=== PATIENT | female | born 1955 | race Asian ===

== ENCOUNTER 2016-11-17 09:16 | Day surgery (SDC) | payer BC ==
[~2016-11-17] VITALS: Ht 157.5 cm; Wt 62.5 kg
[2016-11-17 09:42] VITALS: Ht 157.5 cm; Wt 62.5 kg
[2016-11-17] MEDS ORDERED: ASPI-664 PO (09:54)
[2016-11-17] MEDS ORDERED: SIMV10TA PO (09:54)
[2016-11-17 10:12] VITALS: BP 144/78; PULSE 71; RESP 16
[2016-11-17] MEDS ORDERED: MIDAZOLAM 1 MG/ML 2 ML INJ ONE (10:47)
[2016-11-17] MEDS ORDERED: FENTAnyl 50 MCG/ML VIAL ONE (10:47)
[2016-11-17 11:10] VITALS: BP 115/62; RESP 20
--- NOTE | 2016-12-23 06:14 | GILP ---
DATE OF PROCEDURE: 12/04/2016 PREOPERATIVE DIAGNOSIS: Screening colonoscopy. POSTOPERATIVE DIAGNOSES: 1. Colonoscopy all the way to the cecum. 2. The patient had two small colon polyps and they were removed using the biopsy forceps. 3. Internal hemorrhoids. PROCEDURE PERFORMED: Colonoscopy and biopsy. SURGEON: Andrew Stevens MD. INDICATION FOR PROCEDURE: Ms. Lela Shane is a 62-year-old female who was was scheduled for a screening colonoscopy. The procedure and possible complications were well explained to the patient. The patient understood and consented to the procedure. DESCRIPTION OF PROCEDURE: The colonoscope was carefully introduced in the rectum. Under direct vision it was advanced all the way to the cecum. Findings, the patient had two small colon polyps and they were removed using the biopsy forceps. The patient had hemorhoids. The patient tolerated the procedure very well and there was no complication from the procedure. At the end of procedure she was awake with stable vital signs and she was discharged home in the care of her family. IMPRESSION: Please see postoperatiive diagnoses. PLAN: 1. Await histopathology report. 2. Next screening colonoscopy in 5 years. Dictated By: MD ABNER Ro/violet/jaxson /Document#: [id number] CC: Andrew Stevens MD;*End* MTDD
== END 2016-11-17 11:00 | disposition home or self-care (01) ==
LOC: GIL 09:16
PROVIDERS: ATTEND Internal Medicine Gastroenterology
DX: Z12.11 Encounter for screening for malignant neoplasm of colon (principal); K63.5 Polyp of colon; K64.8 Other hemorrhoids
CPT/HCPCS: 45380; 88305; J2250; J3010; Z7610